=== PATIENT | female | born 1930 | race Caucasian/White ===

== ENCOUNTER → 2020-07-09 | Outpatient (CLI) | payer OTHER | LOC: SJCVCIMAG 12:15 → SJCVC 12:31 | PROVIDERS: ATTEND Specialist | DX: I73.9 Peripheral vascular disease, unspecified (principal); M79.605 Pain in left leg; L97.919 Non-pressure chronic ulcer of unspecified part of right lower leg with unspecified severity; I10 Essential (primary) hypertension; E78.5 Hyperlipidemia, unspecified; Z79.82 Long term (current) use of aspirin; Z79.899 Other long term (current) drug therapy ==

== ENCOUNTER → 2020-07-09 | Outpatient (CLI) | payer OTHER | LOC: HYPER 10:20 | PROVIDERS: ATTEND Specialist | DX: T81.41XA Infection following a procedure, superficial incisional surgical site, initial encounter (principal); I87.331 Chronic venous hypertension (idiopathic) with ulcer and inflammation of right lower extremity; I70.238 Atherosclerosis of native arteries of right leg with ulceration of other part of lower leg; L97.812 Non-pressure chronic ulcer of other part of right lower leg with fat layer exposed; L03.115 Cellulitis of right lower limb; C44.722 Squamous cell carcinoma of skin of right lower limb, including hip; D49.2 Neoplasm of unspecified behavior of bone, soft tissue, and skin; E55.9 Vitamin D deficiency, unspecified; E78.5 Hyperlipidemia, unspecified; G90.09 Other idiopathic peripheral autonomic neuropathy; R29.898 Other symptoms and signs involving the musculoskeletal system; M81.0 Age-related osteoporosis without current pathological fracture; Z87.891 Personal history of nicotine dependence; Z85.828 Personal history of other malignant neoplasm of skin; Z90.49 Acquired absence of other specified parts of digestive tract; Y92.238 Other place in hospital as the place of occurrence of the external cause; Y83.8 Other surgical procedures as the cause of abnormal reaction of the patient, or of later complication, without mention of misadventure at the time of the procedure ==

== ENCOUNTER → 2020-07-16 | Outpatient (CLI) | payer OTHER | LOC: HYPER 10:12 | PROVIDERS: ATTEND Specialist | DX: T81.41XD Infection following a procedure, superficial incisional surgical site, subsequent encounter (principal); I87.331 Chronic venous hypertension (idiopathic) with ulcer and inflammation of right lower extremity; I70.238 Atherosclerosis of native arteries of right leg with ulceration of other part of lower leg; L97.812 Non-pressure chronic ulcer of other part of right lower leg with fat layer exposed; L03.115 Cellulitis of right lower limb; C44.722 Squamous cell carcinoma of skin of right lower limb, including hip; D49.2 Neoplasm of unspecified behavior of bone, soft tissue, and skin; E55.9 Vitamin D deficiency, unspecified; E78.5 Hyperlipidemia, unspecified; G90.09 Other idiopathic peripheral autonomic neuropathy; R29.898 Other symptoms and signs involving the musculoskeletal system; M81.0 Age-related osteoporosis without current pathological fracture; Z87.891 Personal history of nicotine dependence; Z85.828 Personal history of other malignant neoplasm of skin; Z90.49 Acquired absence of other specified parts of digestive tract; Y83.8 Other surgical procedures as the cause of abnormal reaction of the patient, or of later complication, without mention of misadventure at the time of the procedure ==

== ENCOUNTER → 2020-07-23 | Outpatient (CLI) | payer OTHER | LOC: HYPER 07:42 | PROVIDERS: ATTEND Specialist | DX: T81.41XD Infection following a procedure, superficial incisional surgical site, subsequent encounter (principal); I87.331 Chronic venous hypertension (idiopathic) with ulcer and inflammation of right lower extremity; I70.238 Atherosclerosis of native arteries of right leg with ulceration of other part of lower leg; L97.812 Non-pressure chronic ulcer of other part of right lower leg with fat layer exposed; L03.115 Cellulitis of right lower limb; C44.722 Squamous cell carcinoma of skin of right lower limb, including hip; D49.2 Neoplasm of unspecified behavior of bone, soft tissue, and skin; E55.9 Vitamin D deficiency, unspecified; E78.5 Hyperlipidemia, unspecified; G90.09 Other idiopathic peripheral autonomic neuropathy; R29.898 Other symptoms and signs involving the musculoskeletal system; M81.0 Age-related osteoporosis without current pathological fracture; Z87.891 Personal history of nicotine dependence; Z90.49 Acquired absence of other specified parts of digestive tract; Y83.8 Other surgical procedures as the cause of abnormal reaction of the patient, or of later complication, without mention of misadventure at the time of the procedure ==

== ENCOUNTER → 2020-07-26 | Outpatient (CLI) | payer OTHER ==
[~2020-07-26] VITALS: Ht 160 cm; Wt 56.7 kg
[~2020-07-26] MED LIST: ASA81BEC PO; AVALIDE 150-121 EACH PO; VITAMIN B-121000 MC2 PO; VITAMIN C500 M2 PO; VITAMIN D325 MC3 PO; ZETIA10 MG PO
[2020-07-26 08:22] LABS: MCH 30.6 pg (26.0-34.0); MCHC 33.3 g/dL (28.0-37.0); MCV 91.9 fL (80.0-100.0); RBC 4.25 mil/uL (4.20-5.00); RDW 14.7 % (10.5-14.5)
[2020-07-26 08:28] VITALS: BP 156/68
[2020-07-26 08:30] LABS: CALCIUM 9.2 mg/dL (8.5-10.1); CREATININE 0.9 mg/dL (0.6-1.0); POTASSIUM 3.7 mmol/L (3.5-5.1)
== END | disposition home or self-care (01) ==
LOC: CATH 07:32
PROVIDERS: ATTEND Nuclear Medicine Nuclear Cardiology
DX: I70.211 Atherosclerosis of native arteries of extremities with intermittent claudication, right leg (principal); Z53.8 Procedure and treatment not carried out for other reasons; I70.238 Atherosclerosis of native arteries of right leg with ulceration of other part of lower leg; L97.819 Non-pressure chronic ulcer of other part of right lower leg with unspecified severity; I25.10 Atherosclerotic heart disease of native coronary artery without angina pectoris; I12.9 Hypertensive chronic kidney disease with stage 1 through stage 4 chronic kidney disease, or unspecified chronic kidney disease; N18.9 Chronic kidney disease, unspecified; E78.5 Hyperlipidemia, unspecified; E78.00 Pure hypercholesterolemia, unspecified; Z90.49 Acquired absence of other specified parts of digestive tract; Z88.1 Allergy status to other antibiotic agents; Z88.8 Allergy status to other drugs, medicaments and biological substances

== ENCOUNTER → 2020-07-30 | Outpatient (CLI) | payer OTHER ==
[~2020-07-30] MED LIST changes: -VITAMIN B-121000 MC2 PO; -VITAMIN C500 M2 PO; -VITAMIN D325 MC3 PO
== END ==
LOC: HYPER 09:50
PROVIDERS: ATTEND Specialist
DX: T81.41XD Infection following a procedure, superficial incisional surgical site, subsequent encounter (principal); I87.331 Chronic venous hypertension (idiopathic) with ulcer and inflammation of right lower extremity; I70.238 Atherosclerosis of native arteries of right leg with ulceration of other part of lower leg; L97.812 Non-pressure chronic ulcer of other part of right lower leg with fat layer exposed; L03.115 Cellulitis of right lower limb; C44.722 Squamous cell carcinoma of skin of right lower limb, including hip; D49.2 Neoplasm of unspecified behavior of bone, soft tissue, and skin; E55.9 Vitamin D deficiency, unspecified; E78.5 Hyperlipidemia, unspecified; G90.09 Other idiopathic peripheral autonomic neuropathy; R29.898 Other symptoms and signs involving the musculoskeletal system; M81.0 Age-related osteoporosis without current pathological fracture; Z87.891 Personal history of nicotine dependence; Z90.49 Acquired absence of other specified parts of digestive tract; Y83.8 Other surgical procedures as the cause of abnormal reaction of the patient, or of later complication, without mention of misadventure at the time of the procedure

== ENCOUNTER → 2020-08-01 | Outpatient (CLI) | payer OTHER ==
[~2020-08-01] VITALS: Ht 160 cm; Wt 49.9 kg
[~2020-08-01] MED LIST changes: +VITAMIN B-121000 MC2 PO; +VITAMIN C500 M2 PO; +VITAMIN D325 MC3 PO
[2020-08-01 11:22] VITALS: BP 168/76
== END | disposition home or self-care (01) ==
LOC: CATH 10:26
PROVIDERS: ATTEND Nuclear Medicine Nuclear Cardiology
DX: I70.238 Atherosclerosis of native arteries of right leg with ulceration of other part of lower leg (principal); L97.919 Non-pressure chronic ulcer of unspecified part of right lower leg with unspecified severity; I70.212 Atherosclerosis of native arteries of extremities with intermittent claudication, left leg; I70.1 Atherosclerosis of renal artery; I10 Essential (primary) hypertension; I25.10 Atherosclerotic heart disease of native coronary artery without angina pectoris; E78.00 Pure hypercholesterolemia, unspecified; Z98.890 Other specified postprocedural states; Z79.899 Other long term (current) drug therapy; Z87.891 Personal history of nicotine dependence; Z88.8 Allergy status to other drugs, medicaments and biological substances
CPT/HCPCS: 62110; 62900; 70005

== ENCOUNTER → 2020-08-01 | Outpatient (CLI) | payer OTHER | LOC: LAB 07:41 | PROVIDERS: ATTEND Nuclear Medicine Nuclear Cardiology | DX: Z01.812 Encounter for preprocedural laboratory examination (principal); Z20.822 Contact with and (suspected) exposure to COVID-19 ==

== ENCOUNTER → 2020-08-06 | Outpatient (CLI) | payer OTHER | LOC: HYPER 08:34 | PROVIDERS: ATTEND Specialist | DX: T81.41XD Infection following a procedure, superficial incisional surgical site, subsequent encounter (principal); I87.331 Chronic venous hypertension (idiopathic) with ulcer and inflammation of right lower extremity; I70.238 Atherosclerosis of native arteries of right leg with ulceration of other part of lower leg; L97.812 Non-pressure chronic ulcer of other part of right lower leg with fat layer exposed; L03.115 Cellulitis of right lower limb; C44.722 Squamous cell carcinoma of skin of right lower limb, including hip; D49.2 Neoplasm of unspecified behavior of bone, soft tissue, and skin; E55.9 Vitamin D deficiency, unspecified; E78.5 Hyperlipidemia, unspecified; G90.09 Other idiopathic peripheral autonomic neuropathy; R29.898 Other symptoms and signs involving the musculoskeletal system; M81.0 Age-related osteoporosis without current pathological fracture; Z87.891 Personal history of nicotine dependence; Z90.49 Acquired absence of other specified parts of digestive tract; Y83.8 Other surgical procedures as the cause of abnormal reaction of the patient, or of later complication, without mention of misadventure at the time of the procedure ==

== ENCOUNTER → 2020-09-03 | Outpatient (CLI) | payer OTHER | LOC: HYPER 08:31 | PROVIDERS: ATTEND Specialist | DX: T81.41XD Infection following a procedure, superficial incisional surgical site, subsequent encounter (principal); I87.331 Chronic venous hypertension (idiopathic) with ulcer and inflammation of right lower extremity; I70.238 Atherosclerosis of native arteries of right leg with ulceration of other part of lower leg; L97.812 Non-pressure chronic ulcer of other part of right lower leg with fat layer exposed; L03.115 Cellulitis of right lower limb; C44.722 Squamous cell carcinoma of skin of right lower limb, including hip; D49.2 Neoplasm of unspecified behavior of bone, soft tissue, and skin; E55.9 Vitamin D deficiency, unspecified; E78.5 Hyperlipidemia, unspecified; G90.09 Other idiopathic peripheral autonomic neuropathy; R29.898 Other symptoms and signs involving the musculoskeletal system; M81.0 Age-related osteoporosis without current pathological fracture; Z87.891 Personal history of nicotine dependence; Z90.49 Acquired absence of other specified parts of digestive tract; Y83.8 Other surgical procedures as the cause of abnormal reaction of the patient, or of later complication, without mention of misadventure at the time of the procedure ==

== ENCOUNTER → 2020-10-01 | Outpatient (CLI) | payer OTHER | LOC: HYPER 09:30 | PROVIDERS: ATTEND Specialist | DX: T81.41XD Infection following a procedure, superficial incisional surgical site, subsequent encounter (principal); I87.331 Chronic venous hypertension (idiopathic) with ulcer and inflammation of right lower extremity; I70.238 Atherosclerosis of native arteries of right leg with ulceration of other part of lower leg; L97.812 Non-pressure chronic ulcer of other part of right lower leg with fat layer exposed; L03.115 Cellulitis of right lower limb; C44.722 Squamous cell carcinoma of skin of right lower limb, including hip; D49.2 Neoplasm of unspecified behavior of bone, soft tissue, and skin; E55.9 Vitamin D deficiency, unspecified; E78.5 Hyperlipidemia, unspecified; G90.09 Other idiopathic peripheral autonomic neuropathy; R29.898 Other symptoms and signs involving the musculoskeletal system; M81.0 Age-related osteoporosis without current pathological fracture; Z87.891 Personal history of nicotine dependence; Z90.49 Acquired absence of other specified parts of digestive tract; Y83.8 Other surgical procedures as the cause of abnormal reaction of the patient, or of later complication, without mention of misadventure at the time of the procedure ==